=== PATIENT | female | born 1985 | race Caucasian/White ===

== ENCOUNTER 2024-09-17 04:50 | Emergency (ER) | payer MEDICAID ==
[~2024-09-17] VITALS: Ht 162.6 cm; Wt 55.1 kg
[2024-09-17 04:58] VITALS: O2SAT 99
[2024-09-17 05:09] VITALS: BP 162/95; PULSE 83; RESP 18; TEMP 98.5; O2SAT 100
[2024-09-17] MEDS ORDERED: ONDANSETRON 4MG ODT PO ONE (06:45)
[2024-09-17] MEDS ORDERED: IBUPROFEN 400MG TABLET PO ONE (06:45)
== END 2024-09-17 08:24 | disposition left against medical advice (07) ==
LOC: ER 04:50
DX: T76.21XA Adult sexual abuse, suspected, initial encounter (principal); R11.2 Nausea with vomiting, unspecified; F17.200 Nicotine dependence, unspecified, uncomplicated; X58.XXXA Exposure to other specified factors, initial encounter; Y93.89 Activity, other specified; Y92.89 Other specified places as the place of occurrence of the external cause; Y99.8 Other external cause status
CPT/HCPCS: 99282; Q0162; 99281